=== PATIENT | female | born 1990 | race Caucasian/White ===

== ENCOUNTER 2017-07-04 10:02 | Emergency (ER) | payer BC ==
[~2017-07-04] VITALS: Ht 160 cm; Wt 93.5 kg
[~2017-07-04 10:02] MED LIST: ACET1TAB40 PO; AMO500 PO; AMOX1TAB67 PO; AZIT250T94 PO; BACTDS PO; IBUP800T25 PO; PHEN-538 PO; PHEN177S43 MT; PROM6.25 PO; PSEU120T51 PO
[2017-07-04 10:05] VITALS: Ht 160 cm; Wt 93.5 kg
[2017-07-04] MEDS ORDERED: TBR.3OO LEFT EYE (10:58)
[2017-07-04] MEDS ORDERED: TETRACAINE 0.5% 4 ML OPH LEFT EYE ONE (11:00)
[2017-07-04] MEDS ORDERED: FLUORESCEIN STRIP LEFT EYE ONE (11:00)
--- NOTE | 2017-07-04 20:00 | ERD ---
ER Documentation Chief Complaint Date/Time DATE: 07/04/17 TIME: 19:56 Chief Complaint l eye redness after "possible dandruff in my eye" HPI This is a 26-year-old female presents to the ER with left eye redness and discharge with eye itchiness that started yesterday. 2 days ago patient went to go get her eyelashes extended with a treatment and states that afterwards her eye began to feel irritated. Patient denies any contact use. She does admit to some blurry vision however denies vision loss. Patient denies any eye pain. She denies any headaches. She denies any nausea or vomiting. She denies photophobia or double vision. ROS 12 point review of systems was done, all negative except per HPI. Medications Home Meds Active Scripts Tobramycin Sulfate* (Tobrex*) 3.5 Gm Oint..gm., 1 APPLIC LEFT EYE TID for 7 Days , EA Prov:MERT DUNLAP 07/04/17 Sulfamethoxazole-Trimethoprim* (Bactrim* DS) 800-160 Mg Tab, 1 TAB PO BID for 3 Days, TAB Prov:ANG BOOGIE DO 07/27/16 Phenazopyridine Hcl* (Pyridium*) 200 Mg Tab, 200 MG PO TID Y for URINARY PAIN, # 6 TAB Prov:ANG BOOGIE DO 07/27/16 Promethazine Hcl* (Phenergan* Liq) 6.25 Mg/5 Ml Syrup, 12.5 MG PO Q6H Y for COUGH, #4 OZ Prov:EVAN DENISE PA-C 04/14/16 Pseudoephedrine Hcl (Sudafed 12 Hour) 120 Mg Tablet.sa, 120 MG PO BID, #6 Prov:EVAN DENISE PA-C 04/14/16 Azithromycin* (Zithromax*) 250 Mg Tablet, 250 MG PO .ZPACK DIRECTED, #6 TAB TAKE 500 MG (2 TABS) THE FIRST DAY THEN 250 MG (1 TAB) DAYS 2-5 Prov:EVAN DENISE PA-C 04/14/16 Amoxicillin* (Amoxicillin*) 500 Mg Cap, 500 MG PO Q8 for 7 Days, CAP Prov:BRIT POOLE MD 01/24/16 Phenol* (Chloraseptic* [place]) 177 Ml [place].pump, 2 SPRAY MT Q2H Y for SORE THROAT, #1 BOTTLE Prov:BRIT POOLE MD 01/24/16 Ibuprofen* (Motrin*) 800 Mg Tab, 800 MG PO Q6H Y for PAIN AND OR ELEVATED TEMP, #30 TAB Prov:BRIT POOLE MD 01/24/16 Amoxicillin-Clavulanate K* (Augmentin*) 500 Mg Tab, 500 MG PO BID for 10 Days, TAB Prov:PANKAJ PAGE PA-C 05/23/15 Acetaminophen-Codeine* (Acetaminophen-Cod #3*) 300-30 Mg Tab, 1 TAB PO Q6 Y for PAIN AND OR ELEVATED TEMP, #20 TAB Prov:HILARY GARCIA NP 04/13/15 Allergies Allergies: Coded Allergies: No Known Drug Allergies (Verified Allergy, Mild, 01/24/16) PMhx/Soc Medical and Surgical Hx: pt denies Medical Hx, pt denies Surgical Hx History of Surgery: Yes (c section) Anesthesia Reaction: No Hx Neurological Disorder: No Hx Respiratory Disorders: No Hx Cardiac Disorders: No Hx Psychiatric Problems: No Hx Miscellaneous Medical Probl: Yes (pre eclampsia) Hx Alcohol Use: Yes (socially) Hx Substance Use: No Hx Tobacco Use: No Smoking Status: Never smoker Physical Exam Vitals Vital Signs Date Time Temp Pulse Resp B/P Pulse Ox O2 Delivery O2 Flow Rate FiO2 07/04/17 10:05 97.6 84 18 110/73 98 Physical Exam GENERAL: The patient is well developed and appropriate for usual state of health , in no apparent distress. HEENT: Atraumatic. Conjunctivae are pink. Pupils equal, round, and reactive to light. Extraocular muscles are grossly intact. No hyphema or hypopyon. No evidence of foreign body. No exophthalmos. CHEST: Clear to auscultation bilaterally. There are no rales, wheezes or rhonchi. HEART: Regular rate and rhythm. No murmurs, clicks, rubs or gallops. NEURO: Alert and oriented. Results 24 hrs Current Medications Medications (Trade) Dose Ordered Sig/Huan Route PRN Reason Start Time Stop Time Status Last Admin Dose Admin Tetracaine HCl (Tetracaine 0.5% Steri-Unit Rachana) 1 drop ONCE ONCE LEFT EYE 07/04/17 11:00 07/04/17 11:01 DC Fluorescein Sodium (Ancxv-[id number]) 1 strip ONCE ONCE LEFT EYE 07/04/17 11:00 07/04/17 11:01 DC Procedures/MDM Subconjunctival hemorrhage, bacterial conjunctivitis, viral conjunctivitis, allergic conjunctivitis,orbital cellulitis, hyphema, corneal abrasion, keratitis , uveitis, angle-closure glaucoma, retinal detachment, ruptured globe; patient likely has conjunctivitis secondary to irritants from treatment. I spoke to Luis Enrique at [email or web address] and he suggested that patient be treated symptomatically. Fluorescein staining was done there is no evidence of corneal abrasion or ulceration. Visual acuity was within normal limits and symmetrical. Patient did describe some discharge in the morning, she will be treated for possible conjunctivitis. Patient was told to follow-up with [facility] as soon as possible. Patient needs to return to ER sooner if symptoms worsen. My medical decision making was discussed with the patient she understands and agrees with plan. Departure Diagnosis: Primary Impression: Acute conjunctivitis Condition: Stable Patient Instructions: Conjunctivitis, Non-Specific Referrals: [facility] Hours: Mon - Fri 9:00 AM - 5:00 PM Additional Instructions: Call your primary care doctor TOMORROW for an appointment during the next 1-2 days.See the doctor sooner or return here if your condition worsens before your appointment time. PLEASE SEE AN OPTHALMOLOGIST SOON POSSIBLE MERT DUNLAP Jul 04, 2017 20:00
== END 2017-07-04 11:20 | disposition home or self-care (01) ==
LOC: FTE 10:02
DX: H10.32 Unspecified acute conjunctivitis, left eye (principal)
CPT/HCPCS: Z7502; Z7610; 99283

== ENCOUNTER 2017-08-22 20:17 | Emergency (ER) | payer BC ==
[~2017-08-22] VITALS: Ht 162.6 cm; Wt 95.0 kg
[~2017-08-22 20:17] MED LIST changes: -AMO500 PO; +AMOX500C2 PO; +TBR.3OO LEFT EYE
[2017-08-22 20:22] VITALS: Ht 162.6 cm; Wt 95.0 kg
--- NOTE | 2017-08-22 20:54 | ERD ---
ER Documentation Chief Complaint Date/Time DATE: 08/22/17 TIME: 20:40 Chief Complaint low back pain x 1 week, also c/o pain/numbness right foot HPI 27-year-old female who presents emergency department for lower back pain for about a week. Stated that it was described as sharp. Added that she was thinking that he was commenced for. But it is not. For the last 3 days. Pain got worse today and radiates to her right lower leg. Complains of whitish vaginal discharge. Sexually active with one partner only. Partner has no symptoms. LMP: 07/30/2017. A0. Denies headache, dizziness, blurry vision, neck pain, shoulder pain, chest pain , nausea, vomiting, abdominal pain, diarrhea, constipation, dysuria, vaginal bleeding, direct trauma, injury, falls, recent exposure to any illness, recent travel, recent antibiotic use in the last 3 months, fever, chills. No known drug allergies. No past medical history. Surgical history of C- section 1. Works as a [employer]. ROS All systems reviewed and are negative except as per history of present illness. Medications Home Meds Active Scripts Cyclobenzaprine Hcl* (Cyclobenzaprine Hcl*) 10 Mg Tablet, 10 MG PO Q12 Y for MUSCLE SPASMS, #15 TAB Prov:CLOTILDEVIVINATACHA Friend 08/22/17 Ibuprofen* (Motrin*) 800 Mg Tab, 800 MG PO Q8 Y for PAIN AND OR ELEVATED TEMP, # 30 TAB Prov:GAUTAMMATVIVINATACHA Friend 08/22/17 Tobramycin Sulfate* (Tobrex*) 3.5 Gm Oint..gm., 1 APPLIC LEFT EYE TID for 7 Days , EA Prov:MERT DUNLAP 07/04/17 Sulfamethoxazole-Trimethoprim* (Bactrim* DS) 800-160 Mg Tab, 1 TAB PO BID for 3 Days, TAB Prov:ANG BOOGIE DO 07/27/16 Phenazopyridine Hcl* (Pyridium*) 200 Mg Tab, 200 MG PO TID Y for URINARY PAIN, # 6 TAB Prov:ANG BOOGIE DO 07/27/16 Promethazine Hcl* (Phenergan* Liq) 6.25 Mg/5 Ml Syrup, 12.5 MG PO Q6H Y for COUGH, #4 OZ Prov:EVAN DENISE PA-C 04/14/16 Pseudoephedrine Hcl (Sudafed 12 Hour) 120 Mg Tablet.sa, 120 MG PO BID, #6 Prov:EVAN DENISE PA-C 04/14/16 Azithromycin* (Zithromax*) 250 Mg Tablet, 250 MG PO .ZPACK DIRECTED, #6 TAB TAKE 500 MG (2 TABS) THE FIRST DAY THEN 250 MG (1 TAB) DAYS 2-5 Prov:EVAN DENISE PA-C 04/14/16 Amoxicillin* (Amoxicillin*) 500 Mg Cap, 500 MG PO Q8 for 7 Days, CAP Prov:BRIT POOLE MD 01/24/16 Phenol* (Chloraseptic* [place]) 177 Ml [place].pump, 2 SPRAY MT Q2H Y for SORE THROAT, #1 BOTTLE Prov:BRIT POOLE MD 01/24/16 Ibuprofen* (Motrin*) 800 Mg Tab, 800 MG PO Q6H Y for PAIN AND OR ELEVATED TEMP, #30 TAB Prov:BRIT POOLE MD 01/24/16 Amoxicillin-Clavulanate K* (Augmentin*) 500 Mg Tab, 500 MG PO BID for 10 Days, TAB Prov:PANKAJ PAGE PA-C 05/23/15 Acetaminophen-Codeine* (Acetaminophen-Cod #3*) 300-30 Mg Tab, 1 TAB PO Q6 Y for PAIN AND OR ELEVATED TEMP, #20 TAB Prov:HILARY GARCIA NP 04/13/15 Allergies Allergies: Coded Allergies: No Known Drug Allergies (Verified Allergy, Mild, 08/22/17) PMhx/Soc History of Surgery: Yes (c section) Anesthesia Reaction: No Hx Neurological Disorder: No Hx Respiratory Disorders: No Hx Cardiac Disorders: No Hx Psychiatric Problems: No Hx Miscellaneous Medical Probl: Yes (pre eclampsia) Hx Alcohol Use: Yes (socially) Hx Substance Use: No Hx Tobacco Use: No Smoking Status: Never smoker Physical Exam Vitals Vital Signs Date Time Temp Pulse Resp B/P Pulse Ox O2 Delivery O2 Flow Rate FiO2 08/22/17 20:22 98.0 88 20 117/60 100 Physical Exam Const: [] Head: Atraumatic Eyes: Normal Conjunctiva ENT: Normal External Ears, Nose and Mouth. Neck: Full range of motion..~ No meningismus. Resp: Clear to auscultation bilaterally Cardio: Regular rate and rhythm, no murmurs Abd: Soft, non tender, non distended. Normal bowel sounds Skin: No petechiae or rashes Back: No midline or flank tenderness. Mid right and left back pain on range of motion. Spine/T-spine/L-spine are in midline with good and full range of motion and is no swelling/discoloration/bulging/deformity/point of tenderness. Positive right straight leg test. Moves all 4 extremities without difficulty. Ext: No cyanosis, or edema Neur: Awake and alert Psych: Normal Mood and Affect Results 24 hrs Laboratory Tests Test 08/22/17 21:00 Urine Color YELLOW Urine Clarity SLIGHTLY CLOUDY Urine pH 6.0 Urine Specific [place] 1.031 Urine Ketones TRACEmg/dL Urine Nitrite NEGATIVEmg/dL Urine Bilirubin NEGATIVEmg/dL Urine Urobilinogen 2+mg/dL Urine Leukocyte Esterase NEGATIVELeu/ul Urine Microscopic RBC 1/HPF Urine Microscopic WBC 2/HPF Urine Squamous Epithelial Cells FEW/HPF Urine Hemoglobin NEGATIVEmg/dL Urine Glucose NEGATIVEmg/dL Urine Total Protein NEGATIVEmg/dl Current Medications Medications (Trade) Dose Ordered Sig/Huan Route PRN Reason Start Time Stop Time Status Last Admin Dose Admin Ketorolac Tromethamine (Toradol) 60 mg ONCE STAT IM 08/22/17 21:16 08/22/17 21:17 DC Procedures/MDM 27-year-old female who presents emergency department for lower back pain for about a week. Stated that it was described as sharp. Added that she was thinking that he was commenced for. But it is not. For the last 3 days. Pain got worse today and radiates to her right lower leg. Complains of whitish vaginal discharge. Sexually active with one partner only. Partner has no symptoms. LMP: 07/30/2017. A0. Denies headache, dizziness, blurry vision, neck pain, shoulder pain, chest pain , nausea, vomiting, abdominal pain, diarrhea, constipation, dysuria, vaginal bleeding, direct trauma, injury, falls, recent exposure to any illness, recent travel, recent antibiotic use in the last 3 months, fever, chills. No known drug allergies. No past medical history. Surgical history of C- section 1. Works as a [employer] ([employer] Physical exam unremarkable except that patient has a mid right and left back pain on range of motion. Positive right straight leg test. Disease process was explained to the patient and family member. They both verbalized understanding and agreed with the diagnostic test, treatment, plan of care. POC urine : Negative. Urinalysis: Reviewed. Treatment: Toradol IM. Reevaluation: Denies headache, dizziness, blurred vision, neck pain, shoulder pain, chest pain, back pain, abdominal pain, nausea, vomiting. No episode of emesis in the emergency department. There is no right upper/right lower/ epigastric/left upper/left lower abdominal tenderness light and palpation. Negative and psoas sign. Negative [place] sign. Negative Rovsing's sign. Able to jump 10 times without developing abdominal pain. No peritoneal signs. No CVA tenderness. Stated that she feels much better this time and is ready to go home. Neurological deficits. No neurovascular deficits. Differential diagnosis: Nephrolithiasis versus pyelonephritis versus ovarian torsion versus ovarian cyst rupture versus ovarian tumor versus musculoskeletal spasms Final diagnosis: Pyelonephritis versus nephrolithiasis versus muscular skeletal spasms versus urinary tract infection Final diagnosis: Sciatica, musculoskeletal spasms Prescription: Flexeril. Motrin. Follow-up with primary care physician the next 24-48 hours. Come back in the emergency department for any new symptoms or any worsening of symptoms. All questions and concerns are answered. Patient and family member verbalized understanding and agreed with the plan of care. Hemodynamically stable on discharge. Departure Diagnosis: Primary Impression: Back pain Additional Impression: Muscle spasm Condition: Stable Additional Instructions: Follow-up with primary care physician the next 24-48 hours. Come back in the emergency department for any new symptoms or any worsening of symptoms. All questions and concerns are answered. Patient and family member verbalized understanding and agreed with the plan of care. LI MABRY Aug 22, 2017 20:54
[2017-08-22] MEDS ORDERED: KETOROLAC 60 MG INJ IM STA (21:16)
[2017-08-22 21:17] LABS: ADD UMIC NO; UR ASCORBIC ACID NEGATIVE (NEGATIVE); UR BILIRUBIN (Dip) NEGATIVE (NEGATIVE); UR BLOOD (Dip) NEGATIVE (NEGATIVE); UR CLARITY SLIGHTLY CLOUDY (CLEAR); UR COLOR YELLOW (YELLOW); UR GLUCOSE (Dip) NEGATIVE (NEGATIVE); UR KETONES (Dip) TRACE mg/dL (NEGATIVE); UR LEUKOCYTE ESTERASE (Dip) NEGATIVE Leu/ul (NEGATIVE); UR NITRITE (Dip) NEGATIVE (NEGATIVE); UR RBC 1 /HPF (0-5); UR SPECIFIC GRAVITY (Dip) 1.031 (1.003-1.030); UR SQUAMOUS EPITHELIAL CELL FEW /HPF (FEW); UR TOTAL PROTEIN (Dip) NEGATIVE (NEGATIVE); UR UROBILINOGEN (Dip) 2+ mg/dL (NEGATIVE)
[2017-08-22] MEDS ORDERED: CYCL-319 PO (21:40)
[2017-08-22] MEDS ORDERED: IBUP800T25 PO (21:40)
== END 2017-08-22 23:30 | disposition left against medical advice (07) ==
LOC: FTE 20:17
DX: M54.5 Low back pain (principal); M62.830 Muscle spasm of back
CPT/HCPCS: 81001; Z7502; 81003; 99283

== ENCOUNTER 2017-09-01 13:04 | Emergency (ER) | payer BC ==
[~2017-09-01] VITALS: Ht 162.6 cm; Wt 93.6 kg
[~2017-09-01 13:04] MED LIST changes: +CYCL-319 PO
[2017-09-01 13:22] VITALS: Ht 162.6 cm; Wt 93.6 kg
--- NOTE | 2017-09-01 14:17 | ERD ---
ER Documentation Chief Complaint Date/Time DATE: 09/01/17 TIME: 14:14 Chief Complaint right foot pain from injury 2 weeks ago HPI 27-year-old female who presents with right foot pain 2 weeks. Patient states 2 weeks ago she was walking, wearing heels when she twisted her foot. Patient reports persistence of pain to the lateral aspect of her right foot. Patient states she has pain with ambulate. Patient describes the pain to be burning in nature. Patient says she has been taking ibuprofen with minimal alleviation of symptoms. Patient denies any additional falls or trauma since initial injury.. Patient denies any chills, nausea, vomiting, chest pain, shortness breath, back pain or LOC. Patient denies any previous fractures or dislocations to the affected extremity. ROS All systems reviewed and are negative except as per history of present illness. Medications Home Meds Active Scripts Hydrocodone/Acetaminophen ([place] 5-325 Tablet) 1 Each Tablet, 1 TAB PO Q6H Y for PAIN, #7 TAB Prov:CHEYANNE SONG PA-C 09/01/17 Ibuprofen* (Motrin*) 600 Mg Tab, 600 MG PO Q6, #30 TAB Prov:CHEYANNE SONG PA-C 09/01/17 Cyclobenzaprine Hcl* (Cyclobenzaprine Hcl*) 10 Mg Tablet, 10 MG PO Q12 Y for MUSCLE SPASMS, #15 TAB Prov:LI MABRY 08/22/17 Ibuprofen* (Motrin*) 800 Mg Tab, 800 MG PO Q8 Y for PAIN AND OR ELEVATED TEMP, # 30 TAB Prov:LI MABRY 08/22/17 Tobramycin Sulfate* (Tobrex*) 3.5 Gm Oint..gm., 1 APPLIC LEFT EYE TID for 7 Days , EA Prov:MERT DUNLAP 07/04/17 Sulfamethoxazole-Trimethoprim* (Bactrim* DS) 800-160 Mg Tab, 1 TAB PO BID for 3 Days, TAB Prov:ANG BOOGIE DO 07/27/16 Phenazopyridine Hcl* (Pyridium*) 200 Mg Tab, 200 MG PO TID Y for URINARY PAIN, # 6 TAB Prov:ANG BOOGIE DO 07/27/16 Promethazine Hcl* (Phenergan* Liq) 6.25 Mg/5 Ml Syrup, 12.5 MG PO Q6H Y for COUGH, #4 OZ Prov:EVAN DENISE PA-C 04/14/16 Pseudoephedrine Hcl (Sudafed 12 Hour) 120 Mg Tablet.sa, 120 MG PO BID, #6 Prov:EVAN DENISE PA-C 04/14/16 Azithromycin* (Zithromax*) 250 Mg Tablet, 250 MG PO .ZPACK DIRECTED, #6 TAB TAKE 500 MG (2 TABS) THE FIRST DAY THEN 250 MG (1 TAB) DAYS 2-5 Prov:EVAN DENISE PA-C 04/14/16 Amoxicillin* (Amoxicillin*) 500 Mg Cap, 500 MG PO Q8 for 7 Days, CAP Prov:BRIT POOLE MD 01/24/16 Phenol* (Chloraseptic* [place]) 177 Ml [place].pump, 2 SPRAY MT Q2H Y for SORE THROAT, #1 BOTTLE Prov:BRIT POOLE MD 01/24/16 Ibuprofen* (Motrin*) 800 Mg Tab, 800 MG PO Q6H Y for PAIN AND OR ELEVATED TEMP, #30 TAB Prov:BRIT POOLE MD 01/24/16 Amoxicillin-Clavulanate K* (Augmentin*) 500 Mg Tab, 500 MG PO BID for 10 Days, TAB Prov:PANKAJ PAGE PA-C 05/23/15 Acetaminophen-Codeine* (Acetaminophen-Cod #3*) 300-30 Mg Tab, 1 TAB PO Q6 Y for PAIN AND OR ELEVATED TEMP, #20 TAB Prov:HILARY GARCIA NP 04/13/15 Allergies Allergies: Coded Allergies: No Known Drug Allergies (Verified Allergy, Mild, 09/01/17) PMhx/Soc History of Surgery: Yes (c section) Anesthesia Reaction: No Hx Neurological Disorder: No Hx Respiratory Disorders: No Hx Cardiac Disorders: No Hx Psychiatric Problems: No Hx Miscellaneous Medical Probl: Yes (pre eclampsia) Hx Alcohol Use: Yes (socially) Hx Substance Use: No Hx Tobacco Use: No Physical Exam Vitals Vital Signs Date Time Temp Pulse Resp B/P Pulse Ox O2 Delivery O2 Flow Rate FiO2 09/01/17 13:22 97.8 85 16 116/65 97 Physical Exam GENERAL: Well-developed, well-nourished female. Appears in no acute distress. HEAD: Normocephalic, atraumatic. EYES: Pupils are equally reactive bilaterally. EOMs grossly intact. No conjunctival erythema. ENT: Moist mucous membranes. No uvula deviation. No kissing tonsils. NECK: Supple. No meningismus. Normal range of motion of the neck. LUNG: Clear to auscultation bilaterally. No rhonchi, wheezing, rales or coarse breath sounds. HEART: Regular rate and rhythm. No murmurs, rubs or gallops.. EXTREMITIES: Equal pulses bilaterally. No peripheral clubbing, cyanosis or edema. No unilateral leg swelling. NEUROLOGIC: Alert and oriented. Moving all four extremities without any difficulty. Normal speech. SKIN: Normal color. Warm and dry. No rashes or lesions. RIGHT FOOT: No deformity, erythema, ecchymosis or swelling. Skin intact. Tender to palpation over the lateral aspect of the foot, fifth metatarsal. Tender to palpation of the midfoot, ankle, tibia/fibula or knee. Normal range of motion of the knee and ankle. Sensation intact to light touch. Neurovascularly intact. (Able to plantarflex, dorsiflex, raymond foot, invert foot , raise big toe.) 2+ DP and DT pulses. Procedures/MDM ED COURSE: The patient was stable throughout ED course. I kept the patient and/or family informed of laboratory and diagnostic imaging results throughout the ED course. DIAGNOSTIC IMAGING: Read by radiologist. Patient: MADHU MALAGON : 1990 Age: 27 Sex: F MR #: [id number] DOS: 09/01/17 1355 Ordering MD: CHEYANNE SONG PA-C Location: [facility] Room/Bed: PROCEDURE: XR Foot. CLINICAL INDICATION: Right foot pain. TECHNIQUE: AP, lateral and oblique views of the right foot was obtained. The images were reviewed on a PACS workstation. COMPARISON: None. FINDINGS: The bones of the foot appear intact, with no evidence of fracture, dislocation, or subluxation. The joint spaces are preserved. Bone mineralization is normal. The soft tissue structures are intact. IMPRESSION: Unremarkable right foot radiographs. RPTAT: HPNM Physician Vanessa Date Time Electronically viewed and signed by Raman Blankenship Physician on 09/01/2017 14 :19 / CC: CHEYANNE SONG PA-C MEDICAL DECISION MAKING: Patient is a 27-year-old female presents with right foot pain 2 weeks. Patient reports twisting her foot while wearing heels. Patient states she continues to have pain on the aspect of her foot when bearing weight to the affected extremity. Vital signs were reviewed. Patient was afebrile. Foot x-rays were obtained. Right foot x-rays were unremarkable. Patient was advised that she will need to follow-up with field artillery operations specialist and/or obtain an MRI and an outpatient basis. Given these findings, the patient's presentation is most consistent with a foot sprain however unable to rule out any additional ligament or tendon injuries. Low suspicion for ankle dislocation , tibia fracture, fibula fracture, ankle fracture, tarsal bone fracture, metatarsal fracture, phalangeal fracture, stress fracture, DVT, compartment syndrome, plantar fasciitis, diabetic neuropathy or pes planus. PRESCRIPTIONS: Ibuprofen, [place] DISCHARGE: At this time, patient is stable for discharge and outpatient management. RICE therapy and ROM exercises were advised to avoid stiffness. I have instructed the patient to follow-up with his/her primary care physician in 1-2 days. I have discussed with the patient the possibility of needing to see an field artillery operations specialist for further workup and imaging if the pain persists. I have instructed the patient to promptly return to the ER for any new or worsening symptoms including increased pain, swelling, redness, warmth or fever. The patient and/or family expressed understanding of and agreement with this plan. All questions were answered. Home care instructions were provided. Disclaimer: Inadvertent spelling and grammatical errors are likely due to EHR/ dictation software use and do not reflect on the overall quality of patient care. Also, please note that the electronic time recorded on this note does not necessarily reflect the actual time of the patient encounter. Departure Diagnosis: Primary Impression: Injury of foot Encounter type: initial encounter Laterality: left Qualified Code: S99.922A - Injury of left foot, initial encounter Condition: Stable Patient Instructions: Sprain Foot Additional Instructions: Call your primary care doctor TOMORROW for an appointment during the next 1-2 days.See the doctor sooner or return here if your condition worsens before your appointment time. CHEYANNE SONG PA-C Sep 01, 2017 14:17
--- NOTE | 2017-09-01 14:20 | RADRPT ---
PROCEDURE: XR Foot. CLINICAL INDICATION: Right foot pain. TECHNIQUE: AP, lateral and oblique views of the right foot was obtained. The images were reviewed on a PACS workstation. COMPARISON: None. FINDINGS: The bones of the foot appear intact, with no evidence of fracture, dislocation, or subluxation. The joint spaces are preserved. Bone mineralization is normal. The soft tissue structures are intact. IMPRESSION: Unremarkable right foot radiographs. RPTAT: HPNM Physician Vanessa Date Time Electronically viewed and signed by Physician Vanessa on 09/01/2017 14:19 /
[2017-09-01] MEDS ORDERED: IBUP-1542 PO (14:34)
[2017-09-01] MEDS ORDERED: HYDR-906 PO (14:35)
== END 2017-09-01 14:46 | disposition home or self-care (01) ==
LOC: FTE 13:04
DX: S99.922A Unspecified injury of left foot, initial encounter (principal); X50.9XXA Other and unspecified overexertion or strenuous movements or postures, initial encounter; Y92.9 Unspecified place or not applicable
CPT/HCPCS: 73630; Z7502

== ENCOUNTER 2017-10-10 10:43 | Emergency (ER) | payer BC ==
[~2017-10-10] VITALS: Ht 162.6 cm; Wt 95.0 kg
[~2017-10-10 10:43] MED LIST changes: +HYDR-906 PO; +IBUP-1542 PO
[2017-10-10 10:54] VITALS: Ht 162.6 cm; Wt 95.0 kg
[2017-10-10] MEDS ORDERED: AMOX1TAB10 PO (13:22)
[2017-10-10] MEDS ORDERED: IBUP-1542 PO (13:22)
[2017-10-10] MEDS ORDERED: FLUT9.9S NASAL (13:39)
--- NOTE | 2017-10-10 13:44 | ERD ---
ER Documentation Chief Complaint Chief Complaint throat pain with sinus pressure x 2 days, denies fever HPI 27-year-old female patient with no significant past medical history presents to the ED complaining of sinus pressure and sore throat that started 2 days ago. Reports that she also has nasal congestion. Patient denies any fever, chills, chest pain, shortness of breath, cough, rhinorrhea. Describes it as achy and rates it a 5 out of 10. Patient reports that this has happened previously and feels like a sinus infection. Denies any sick contacts. ROS All systems reviewed and are negative except as per history of present illness. Medications Home Meds Active Scripts Fluticasone Propionate (Flonase Allergy Relief) 9.9 Ml [place].susp, 1 SPRAY NASAL DAILY, #1 BOTTLE TO EACH NOSTRIL Prov:JESSIE UMANZOR PA-C 10/10/17 Ibuprofen* (Motrin*) 600 Mg Tab, 600 MG PO Q6, #30 TAB Prov:JESSIE UMANZOR PA-C 10/10/17 Amoxicillin/Potassium Clav (Amox-Clav 875-125 mg Tablet) 875-125 mg Tab, 1 TAB PO BID for 7 Days, #14 TAB Prov:JESSIE UMANZOR PA-C 10/10/17 Hydrocodone/Acetaminophen ([place] 5-325 Tablet) 1 Each Tablet, 1 TAB PO Q6H Y for PAIN, #7 TAB Prov:CHEYANNE SONG PA-C 09/01/17 Ibuprofen* (Motrin*) 600 Mg Tab, 600 MG PO Q6, #30 TAB Prov:CHEYANNE SONG PA-C 09/01/17 Cyclobenzaprine Hcl* (Cyclobenzaprine Hcl*) 10 Mg Tablet, 10 MG PO Q12 Y for MUSCLE SPASMS, #15 TAB Prov:PASILAVIVI KELLEYAR F 08/22/17 Ibuprofen* (Motrin*) 800 Mg Tab, 800 MG PO Q8 Y for PAIN AND OR ELEVATED TEMP, # 30 TAB Prov:PASILABAN,VIVIAR F 08/22/17 Tobramycin Sulfate* (Tobrex*) 3.5 Gm Oint..gm., 1 APPLIC LEFT EYE TID for 7 Days , EA Prov:MERT DUNLAP 07/04/17 Sulfamethoxazole-Trimethoprim* (Bactrim* DS) 800-160 Mg Tab, 1 TAB PO BID for 3 Days, TAB Prov:ANG BOOGIE DO 07/27/16 Phenazopyridine Hcl* (Pyridium*) 200 Mg Tab, 200 MG PO TID Y for URINARY PAIN, # 6 TAB Prov:ANG BOOGIE DO 07/27/16 Promethazine Hcl* (Phenergan* Liq) 6.25 Mg/5 Ml Syrup, 12.5 MG PO Q6H Y for COUGH, #4 OZ Prov:EVAN DENISE PA-C 04/14/16 Pseudoephedrine Hcl (Sudafed 12 Hour) 120 Mg Tablet.sa, 120 MG PO BID, #6 Prov:EVAN DENISE PA-C 04/14/16 Azithromycin* (Zithromax*) 250 Mg Tablet, 250 MG PO .ZPACK DIRECTED, #6 TAB TAKE 500 MG (2 TABS) THE FIRST DAY THEN 250 MG (1 TAB) DAYS 2-5 Prov:EVAN DENISE PA-C 04/14/16 Amoxicillin* (Amoxicillin*) 500 Mg Cap, 500 MG PO Q8 for 7 Days, CAP Prov:BRIT POOLE MD 01/24/16 Phenol* (Chloraseptic* [place]) 177 Ml [place].pump, 2 SPRAY MT Q2H Y for SORE THROAT, #1 BOTTLE Prov:BRIT POOLE MD 01/24/16 Ibuprofen* (Motrin*) 800 Mg Tab, 800 MG PO Q6H Y for PAIN AND OR ELEVATED TEMP, #30 TAB Prov:BRIT POOLE MD 01/24/16 Amoxicillin-Clavulanate K* (Augmentin*) 500 Mg Tab, 500 MG PO BID for 10 Days, TAB Prov:PANKAJ PAGE PA-C 05/23/15 Acetaminophen-Codeine* (Acetaminophen-Cod #3*) 300-30 Mg Tab, 1 TAB PO Q6 Y for PAIN AND OR ELEVATED TEMP, #20 TAB Prov:HILARY GARCIA NP 04/13/15 Allergies Allergies: Coded Allergies: No Known Drug Allergies (Verified Allergy, Mild, 10/10/17) PMhx/Soc Medical and Surgical Hx: pt denies Medical Hx History of Surgery: Yes (c section) Anesthesia Reaction: No Hx Neurological Disorder: No Hx Respiratory Disorders: No Hx Cardiac Disorders: No Hx Psychiatric Problems: No Hx Miscellaneous Medical Probl: Yes (pre eclampsia) Hx Alcohol Use: Yes (socially) Hx Substance Use: No Hx Tobacco Use: No Smoking Status: Current some day smoker Physical Exam Vitals Vital Signs Date Time Temp Pulse Resp B/P Pulse Ox O2 Delivery O2 Flow Rate FiO2 10/10/17 10:54 98.3 100 18 133/66 99 Physical Exam Const: [id number], well-nourished. In no acute distress. Head: Atraumatic, normocephalic. Tender palpation of the maxillary and frontal sinuses. No erythema or edema. No fluctuance. Eyes: Normal Conjunctiva without injection. No purulent discharge. PERRL. EOMI ENT: Normal external ear. Ear canal without erythema. Tympanic membrane pearly verduzco without effusion or bulging. Nasal canal clear with normal turbinates. Moist oropharynx without tonsillar exudates. Non-erythematous pharynx. Uvula midline. No drooling. No trismus. Neck: Full range of motion. No meningismus. No cervical lymphadenopathy. Resp: Clear to auscultation bilaterally. No wheezing, rhonchi, rales, or crackles. No accessory muscle use. No retractions. Cardio: Regular rate and rhythm. No murmurs, rubs or gallops. Abd: Soft, non tender, non distended. Normal bowel sounds. No palpable masses. No rebound tenderness. No guarding. Skin: No petechiae or rashes Back: No midline tenderness. No CVA tenderness. Ext: No cyanosis, or edema. Neur: Awake and alert. Psych: Normal Mood and Affect Procedures/MDM This is a 27-year-old female patient with no significant past medical history presents to the ED complaining of sore throat, sinus pain that started intermittently for 2 days. Patient is afebrile and nontoxic-appearing. Patient has normal vital signs. Patient's physical exam is consistent with presumed sinusitis. Patient's physical exam include lungs which were clear to auscultation and a normal pulse oximetry. Bilateral ears pearly ames. No tenderness to palpation of tragus or mastoid. Low suspicion for mastoiditis, otitis externa, otitis media. Patient is speaking in full sentences. There is a low suspicion for pneumonia, epiglottitis, croup, Elijah's angina, peritonsillar abscess, hands foot mouth disease, retropharyngeal abscess, meningitis, sepsis, acute abdomen or other emergent conditions. Discharge medications: Fluticasone, Augmentin, Ibuprofen Follow up with primary care physician in 1-2 days. Instructed patient to return to the ED sooner for any worsening symptoms. Patient's questions were answered. Patient understood and agreed with discharge plan. Patient discharged stable. Departure Diagnosis: Primary Impression: Sinus pain Condition: Stable Patient Instructions: Sinusitis, Abx Tx Referrals: [facility] YOU HAVE RECEIVED A MEDICAL SCREENING EXAM AND THE RESULTS INDICATE THAT YOU DO NOT HAVE A CONDITION THAT REQUIRES URGENT TREATMENT IN THE EMERGENCY DEPARTMENT. FURTHER EVALUATION AND TREATMENT OF YOUR CONDITION CAN WAIT UNTIL YOU ARE SEEN IN YOUR DOCTORS OFFICE WITHIN THE NEXT 1-2 DAYS. IT IS YOUR RESPONSIBILITY TO MAKE AN APPOINTMENT FOR FOLOW-UP CARE. IF YOU HAVE A PRIMARY DOCTOR --you should call your primary doctor and schedule an appointment IF YOU DO NOT HAVE A PRIMARY DOCTOR YOU CAN CALL OUR PHYSICIAN REFERRAL HOTLINE AT IF YOU CAN NOT AFFORD TO SEE A PHYSICIAN YOU CAN CHOSE FROM THE FOLLOWING [facility] [address] [facility]. [facility] [address] [facility]. [facility] [address] [facility] [facility] [address] [facility] [facility] [address] [facility]. [facility]. [address] [facility]. [facility] YOU HAVE RECEIVED A MEDICAL SCREENING EXAM AND THE RESULTS INDICATE THAT YOU DO NOT HAVE A CONDITION THAT REQUIRES URGENT TREATMENT IN THE EMERGENCY DEPARTMENT. FURTHER EVALUATION AND TREATMENT OF YOUR CONDITION CAN WAIT UNTIL YOU ARE SEEN IN YOUR DOCTORS OFFICE WITHIN THE NEXT 1-2 DAYS. IT IS YOUR RESPONSIBILITY TO MAKE AN APPOINTMENT FOR FOLOW-UP CARE. IF YOU HAVE A PRIMARY DOCTOR --you should call your primary doctor and schedule and appointment IF YOU DO NOT HAVE A PRIMARY DOCTOR YOU CAN CALL OUR PHYSICIAN REFERRAL HOTLINE AT . IF YOU CAN NOT AFFORD TO SEE A PHYSICIAN YOU CAN CHOSE FROM THE FOLLOWING [facility]: [facility] [address] [place] [address] [facility] [address] [place] [address] [facility] + [facility] [address] [place] [address] [facility] URGENT CARE/SPECIALTIES Additional Instructions: Call your primary care doctor TOMORROW for an appointment during the next 2-3 days.See the doctor sooner or return here if your condition worsens before your appointment time. JESSIE UMANZOR PA-C Oct 10, 2017 13:44 JESSIE UMANZOR PA-C Oct 10, 2017 13:44
== END 2017-10-10 13:52 | disposition home or self-care (01) ==
LOC: FTE 10:43
DX: J34.89 Other specified disorders of nose and nasal sinuses (principal); F17.210 Nicotine dependence, cigarettes, uncomplicated
CPT/HCPCS: 99283

== ENCOUNTER 2018-09-28 12:07 | Emergency (ER) | END 2018-09-28 13:41 | disposition home or self-care (01) ==